=== PATIENT | male | born 1940 | race Caucasian/White ===

== ENCOUNTER 2018-12-22 12:33 | Outpatient (REF) | payer MEDICARE, BC, SELFPAY ==
[2018-12-22 22:02] LABS: ALT 30 U/L (12-78); AST 20 U/L (15-37); Alkaline Phosphatase 89 U/L (46-116); BUN 20 mg/dL (7-18); Bilirubin, Total 0.8 mg/dL (0.2-1.0); CREATININE 1.54 mg/dL (0.70-1.30); Chloride 103 mmol/L (98-107); Estimated GFR 44.02 (mL/min/1.73m2); Glucose 243 mg/dL (70-100); Potassium 4.5 mmol/L (3.5-5.1); Sodium 139 mmol/L (136-145); Total Protein 7.8 g/dL (6.4-8.2)
[2018-12-22 22:11] LABS: Calcium 9.4 mg/dL (8.5-10.1)
== END 2018-12-22 12:53 ==
LOC: NCHCN 12:33
PROVIDERS: PCP Nurse Practitioner Family; Visit Provider Nurse Practitioner Family
DX: E78.5 Hyperlipidemia, unspecified (principal); I65.29 Occlusion and stenosis of unspecified carotid artery; I25.10 Atherosclerotic heart disease of native coronary artery without angina pectoris; R05 Cough; R60.0 Localized edema; N18.2 Chronic kidney disease, stage 2 (mild); E11.9 Type 2 diabetes mellitus without complications
CPT/HCPCS: 80053

== ENCOUNTER 2018-12-24 12:49 | Outpatient (CLI) | payer MEDICARE, SELFPAY ==
--- NOTE | 2018-12-24 12:56 | DI.RAD_ITS ---
SYMPTOMS/DIAGNOSIS: COUGH, R05 PA AND LATERAL CHEST: Comparison is made with [id number]. The heart size is normal. The lungs appear clear. No infiltrate, effusion or pulmonary edema is seen. IMPRESSION: Negative chest x-ray.
--- NOTE | 2018-12-24 14:35 | DI.US_ITS ---
SYMPTOM/DIAGNOSIS: CAROTID ARTREY STENOSIS I 65.29. HYPERLIPIDEMIA E78.5 CAD I25.10 CAROTID ULTRASOUND: Comparison is made with 23 December 2014. Mainly calcific plaque is seen in the right common carotid bulb. There are no significant velocity elevations, consistent with a less than 50% stenosis. There is a large focus of calcific plaque in the left internal carotid artery proximally. There are velocity elevations consistent with a severe stenosis greater than 70% in the mid portion. Both vertebral arteries show antegrade flow. IMPRESSION: Greater than 70% stenosis of the left internal carotid artery. Less than 50% stenosis of the right internal carotid artery.
== END 2018-12-24 13:09 ==
PROVIDERS: PCP Nurse Practitioner Family; Visit Provider Nurse Practitioner Family
DX: I65.21 Occlusion and stenosis of right carotid artery (principal); I65.22 Occlusion and stenosis of left carotid artery; E78.5 Hyperlipidemia, unspecified; I25.10 Atherosclerotic heart disease of native coronary artery without angina pectoris; R05 Cough
CPT/HCPCS: 71046; 93880